=== PATIENT | female | born 1980 | race Caucasian/White ===

== ENCOUNTER → 2020-08-06 | Outpatient (CLI) | payer OTHER ==
--- NOTE | 2020-08-06 13:28 | REPPI ---
INDICATION: ASTHMA. COMPARISON: None. TECHNIQUE: PA and lateral views FINDINGS: The superior mediastinal structures are midline. The cardiac silhouette is unremarkable in size, shape, and position. The diaphragmatic surfaces of the lungs are regular, and the costophrenic angles are clear. The pulmonary dong are clear. The imaged osseous structures are intact. IMPRESSION: There is no acute cardiopulmonary disease. <Electronically signed by Filiberto Perez > 08/06/20 [id number]
== END ==
LOC: M PLAIMG 12:12
PROVIDERS: ATTEND Internal Medicine Pulmonary Disease
DX: J45.20 Mild intermittent asthma, uncomplicated (principal)

== ENCOUNTER → 2021-02-02 | Outpatient (CLI) | payer BC ==
--- NOTE | 2021-02-03 14:31 | SLEEPHOME ---
DATE: 02/02/2021 ORDERED BY: Dr. Deng Locke Diagnostic home sleep testing was performed due to concern for the obstructive sleep apnea syndrome in this patient with a history of excessive somnolence and nonrestorative sleep. For testing, a nocturnal T3 respiratory monitoring device was used. Continuous record was made of pulse, oxygen saturation, air flow, chest and abdominal strain, and body position. There was 8 hours and 45 minutes of data reviewed. There was 5 hours and 41 minutes marked as time in bed. During the interval marked time in bed, there were 19 respiratory events identified of 10 seconds in duration or greater. The events were associated with the supine posture. They were generally hypopneic. Baseline pulse rate 70. Pulse rate ranged 58-105. Baseline saturation 95%. Saturations remained in the 90s. Lowest saturation appreciated 92%, and testing was performed in both the supine and nonsupine positions. IMPRESSION: Borderline diagnostic home sleep test with respiratory patterning in the supine position. RECOMMENDATION: Sleep position retraining for avoidance of the supine posture may be effective. Should the patient continue to experience symptoms, formal in-laboratory nocturnal polysomnography may be more sensitive to identifying mild disease.
== END ==
LOC: M SLEEP HO 13:31
PROVIDERS: ATTEND Internal Medicine Pulmonary Disease
DX: R40.0 Somnolence (principal)

== ENCOUNTER → 2021-03-25 | Outpatient (CLI) | payer BC | LOC: M SLEEP 20:00 | PROVIDERS: ATTEND Physician Assistant | DX: G47.33 Obstructive sleep apnea (adult) (pediatric) (principal) ==

== ENCOUNTER → 2021-05-14 | Outpatient (CLI) | payer BC ==
--- NOTE | 2021-05-16 16:36 | SLEEPCENT ---
DATE: 05/14/2021 CPAP TITRATION ORDERED BY: Deng Locke DO, [facility] Nocturnal polysomnography was performed for the titration of pressure therapy in this patient with obstructive sleep apnea syndrome. For testing a Respironics ComfortGel nasal mask of petite size was used, 4 cm of water pressure were applied to the circuit, and the lights were extinguished. Seven hours and 52 minutes of data were reviewed. There were 422 minutes of sleep identified. Sleep latency was mildly prolonged at 24.5 minutes. REM latency was normal at 98.5 minutes. Sleep architecture was good with 5 REM cycles. Overall sleep efficiency was 92%. The electrocardiogram showed a sinus rhythm with an average heart rate of 65 beats per minute. Rate ranged 55-80. EEG showed normal waveforms for wake and sleep. Respiratory events were fully palliated with CPAP at a pressure of +4. Additional pressure was not felt to be further beneficial. There was some minor activity in the limb leads and remaining measures of sleep physiology were normal. IMPRESSION: Obstructive sleep apnea syndrome (G47.33). RECOMMENDATION: Nightly use of pressure therapy 4 cm of water. cc: Dr. Clifton
== END ==
LOC: M SLEEP 20:00
PROVIDERS: ATTEND Physician Assistant
DX: G47.33 Obstructive sleep apnea (adult) (pediatric) (principal)

== ENCOUNTER → 2024-04-02 | Outpatient (CLI) | payer OTHER | LOC: M PLAIMG 09:32 | PROVIDERS: ATTEND Internal Medicine Pulmonary Disease | DX: R91.8 Other nonspecific abnormal finding of lung field (principal) ==

== ENCOUNTER → 2025-04-29 | Outpatient (CLI) | payer OTHER | LOC: M RAD 16:57 | PROVIDERS: ATTEND Internal Medicine Pulmonary Disease | DX: R91.8 Other nonspecific abnormal finding of lung field (principal) ==